=== PATIENT | male | born 2000 | race Caucasian/White ===

== ENCOUNTER 2020-04-09 14:32 | Emergency (ER) | payer OTHER ==
[2020-04-09 14:48] VITALS: BP 132/85
--- NOTE | 2020-04-09 15:30 | ER Document Report ---
ED Oral Problem - General Chief Complaint: Mouth Problem Stated Complaint: SORE IN MOUTH/NECK AND HEAD PAIN Time Seen by Provider: 04/09/20 15:25 Mode of Arrival: Ambulatory Information source: Patient - HPI Patient complains to provider of: Other - 20-year-old male presents to the emergency room today stating he has a burning sensation to the cleft of his mouth for the last 2 days. Quality of pain: Achy, Burning Severity: Mild Sore throat: Moderate Associated symptoms: None Relieved by: Nothing Similar symptoms previously: No Recently seen / treated by doctor/dentist: No - Related Data Allergies/Adverse Reactions: No Known Allergies Allergy (Unverified 04/09/20 15:26) Past Medical History - General Information source: Patient - Social History Smoking Status: Current Every Day Smoker Chew tobacco use (# tins/day): No Frequency of alcohol use: Occasional Drug Abuse: None Family History: None Review of Systems - Review of Systems Constitutional: No symptoms reported EENT: No symptoms reported Cardiovascular: No symptoms reported Respiratory: No symptoms reported Gastrointestinal: No symptoms reported Genitourinary: No symptoms reported Male Genitourinary: No symptoms reported Musculoskeletal: No symptoms reported Skin: No symptoms reported Hematologic/Lymphatic: No symptoms reported Neurological/Psychological: No symptoms reported Physical Exam - Vital signs Vitals: Temp Pulse Resp BP Pulse Ox 99.4 F 91 16 132/85 H 99 04/09/20 14:46 04/09/20 14:46 04/09/20 14:46 04/09/20 14:46 04/09/20 14:46 Interpretation: Normal - General General appearance: Appears well, Alert - HEENT Head: Normocephalic, Atraumatic Eyes: Normal Pupils: PERRL Sinus: Normal Mouth/Lips: Normal Pharynx: Normal Notes: Oropharynx pink no erythema no exudate no vesicles noted no oral floor induration no trismus no gingivitis looks as though the soft palate or cleft has been burned by something hot. - Respiratory Respiratory status: No respiratory distress Chest status: Nontender Breath sounds: Normal Chest palpation: Normal - Cardiovascular Rhythm: Regular Heart sounds: Normal auscultation Murmur: No - Abdominal Inspection: Normal Distension: No distension Bowel sounds: Normal Tenderness: Nontender Organomegaly: No organomegaly - Back Back: Normal, Nontender - Extremities General upper extremity: Normal inspection, Nontender, Normal color, Normal ROM, Normal temperature General lower extremity: Normal inspection, Nontender, Normal color, Normal ROM, Normal temperature, Normal weight bearing. No: Izabela's sign - Neurological Neuro grossly intact: Yes Cognition: Normal Orientation: AAOx4 Madhavi Coma Scale Eye Opening: Spontaneous Madhavi Coma Scale Verbal: Oriented [place] Coma Scale Motor: Obeys Commands [place] Coma Scale Total: 15 Speech: Normal Motor strength normal: LUE, RUE, LLE, RLE Sensory: Normal - Psychological Associated symptoms: Normal affect, Normal mood - Skin Skin Temperature: Warm Skin Moisture: Dry Skin Color: Normal Course - Vital Signs Vital signs: Temp Pulse Resp BP Pulse Ox 99.4 F 91 16 132/85 H 99 04/09/20 15:23 04/09/20 14:46 04/09/20 14:46 04/09/20 14:46 04/09/20 14:46 Discharge - Discharge Clinical Impression: Oral aphthous ulcer Condition: Good Disposition: HOME, SELF-CARE Instructions: Mouth Sores ([facility]) Prescriptions: Nystatin/Dexameth/Diphen [Magic Mouthwash ([facility] Formula) Susp] 5 ml PO QID #120 ml
== END 2020-04-09 15:33 | disposition home or self-care (01) ==
LOC: ER 14:32
DX: K12.0 Recurrent oral aphthae (principal); F17.200 Nicotine dependence, unspecified, uncomplicated
CPT/HCPCS: 99282